=== PATIENT | male | born 1960 | race African-American/Black ===

== ENCOUNTER 2020-08-16 10:29 | Emergency (ER) | payer SELFPAY ==
[~2020-08-16] VITALS: Ht 188 cm; Wt 90.6 kg
[2020-08-16 10:46] VITALS: BP 164/83
[2020-08-16] MEDS ORDERED: HYDROcodone/APAP 10/325 1 TAB TABLET PO ONE (11:00)
[2020-08-16] MEDS ORDERED: BACITRACIN ZINC TOPICAL OINT PACKET. TP ONE (11:33)
[2020-08-16] MEDS ORDERED: HYDR-3165 PO (11:34)
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
== END 2020-08-16 11:48 | disposition home or self-care (01) ==
LOC: ER 10:29
DX: T24.211A Burn of second degree of right thigh, initial encounter (principal); T23.122A Burn of first degree of single left finger (nail) except thumb, initial encounter; T31.0 Burns involving less than 10% of body surface; X08.8XXA Exposure to other specified smoke, fire and flames, initial encounter; Y93.89 Activity, other specified; Y92.89 Other specified places as the place of occurrence of the external cause; Y99.8 Other external cause status
CPT/HCPCS: 16020; 99283

== ENCOUNTER 2020-08-29 12:34 | Emergency (ER) | payer SELFPAY ==
[~2020-08-29] VITALS: Ht 185.4 cm; Wt 105.0 kg
[~2020-08-29 12:34] MED LIST: HYDR-3165 PO
[2020-08-29 12:35] VITALS: BP 136/79
--- NOTE | 2020-08-29 13:04 | PHYS DOC ---
Past History Past Medical History: No Pertinent History Past Surgical History: No Surgical History Alcohol Use: Occasionally General Adult EDM: Chief Complaint: ABSCESS HPI: HPI: Patient is a 60-year-old male who presents with abscess on back of his neck and right buttocks. Patient states he noticed the abscess 4 days ago. Patient reports pain to both areas. Patient denies taking anything for the pain. Patient denies fever. Review of Systems: Review of Systems: Constitutional: Denies fever or chills Eyes: Denies change in visual acuity HENT: Denies nasal congestion or sore throat Respiratory: Denies cough or shortness of breath Cardiovascular: Denies chest pain or edema GI: Denies abdominal pain, nausea, vomiting, bloody stools or diarrhea : Denies dysuria Musculoskeletal: Denies back pain or joint pain Integument: Reports abscess to neck, right buttocks Neurologic: Denies headache, focal weakness or sensory changes Endocrine: Denies polyuria or polydipsia Lymphatic: Denies swollen glands Psychiatric: Denies depression or anxiety Allergies: Allergies: Allergies Coded Allergies Type Severity Reaction Last Updated Verified No Known Drug Allergies 08/29/20 No Physical Exam: PE: Constitutional: Well developed, well nourished, no acute distress, non-toxic appearance. [] HENT: Normocephalic, atraumatic, bilateral external ears normal, oropharynx moist, no oral exudates, nose normal. [] Eyes: PERRLA, EOMI, conjunctiva normal, no discharge. [] Neck: Normal range of motion, no tenderness, supple, no stridor. [] Cardiovascular:Heart rate regular rhythm, no murmur [] Lungs & Thorax: Bilateral breath sounds clear to auscultation [] Abdomen: Bowel sounds normal, soft, no tenderness, no masses, no pulsatile masses. [] Skin: Red, raised abscess to back of neck and right buttocks Back: No tenderness, no CVA tenderness. [] Extremities: No tenderness, no cyanosis, no clubbing, ROM intact, no edema. [] Neurologic: Alert and oriented X 3, normal motor function, normal sensory function, no focal deficits noted. [] Psychologic: Affect normal, judgement normal, mood normal. [] Current Patient Data: Vital Signs: Vital Signs Date Time Temp Pulse Resp B/P (MAP) Pulse Ox O2 Delivery O2 Flow Rate FiO2 08/29/20 12:35 99.7 109 20 136/79 (98) 96 EKG: EKG: [] Radiology/Procedures: Radiology/Procedures: [] Heart Score: Risk Factors: Risk Factors: DM, Current or recent (<one month) smoker, HTN, HLP, family history of CAD, obesity. Risk Scores: Score 0 - 3: 2.5% MACE over next 6 weeks - Discharge Home Score 4 - 6: 20.3% MACE over next 6 weeks - Admit for Clinical Observation Score 7 - 10: 72.7% MACE over next 6 weeks - Early Invasive Strategies Course & Med Decision Making: Course & Med Decision Making Pertinent Labs and Imaging studies reviewed. (See chart for details) [] 60-year-old male who presents with abscess on back of his neck and right buttocks. Patient states he noticed the abscess 4 days ago. I&D and antibiotics for home. Follow up in 3-5 days with PCP or emergency room for wound check. Dragon Disclaimer: Dragon Disclaimer: This electronic medical record was generated, in whole or in part, using a voice recognition dictation system. Departure Departure: Impression: Primary Impression: Abscess Disposition: 01 DC HOME SELF CARE/HOMELESS Condition: IMPROVED Referrals: PCP,NO (PCP) Patient Instructions: Abscess, [id number] Additional Instructions: Follow up in 3-5 days for wound check. Make sure to take your antibiotic as directed to heal your wounds. EMERGENCY DEPARTMENT GENERAL DISCHARGE INSTRUCTIONS Thank you for coming to [facility] (ED) today and trusting us with you care. We trust that you had a positivie experience in our Emergency Department. If you wish to speak to the department management, you may call the director at [phone]. YOUR FOLLOW UP INSTRUCTIONS ARE FOLLOWS: 1. Do you have a private Doctor? If you do not have a private doctor, please ask for a resource list of physicians or clinics that may be able to assist you with follow up care. 2. The Emergency Physician has interpreted your x-rays. The X-Ray specialist will also review them. If there is a change in the findings, you will be notified in 48 hours when at all possible. 3. A lab test or culture has been done, your results will be reviewed and you will be notified if you need a change in treatment. ADDITIONAL INSTRUCTIONS AND INFORMATION: 1. Your care today has been supervised by a physician who is specially trained in emergency care. Many problems require more than one evaluation for a complete diagnosis and treatment. We recommend that you schedule your follow up appointment as recommended to ensure complete treatment of you illness or injury. If you are unable to obtain follow up care and continue to have a problem, or if your condition worsens, we recommend that you return to the ED. 2. We are not able to safely determine your condition over the phone nor are we able to give sound medical advice over the phone. For these safety reasons, if you call for medical advice we will ask you to come to the ED for further evaluation. 3. If you have any questions regarding these discharge instructions please call the ED at [phone]. SAFETY INFORMATION: In the interest of safety, wellness, and injury prevention; we encourage you to wear your sealbelt, if you smoke; quite smoking, and we encourage family to use a protective helmet for bicycling and other sporting events that present an increased risk for head injury. IF YOUR SYMPTOMS WORSEN OR NEW SYMPTOMS DEVELOP, OR YOU HAVE CONCERNS ABOUT YOUR CONDITION; OR IF YOUR CONDITION WORSENS WHILE YOU ARE WAITING FOR YOUR FOLLOW UP APPOINTMENT; EITHER CONTACT YOUR PRIMARY CARE DOCTOR, THE PHYSICIAN WHOSE NAME AND NUMBER YOU WERE GIVEN, OR RETURN TO THE ED IMMEDIATELY. Scripts Sulfamethoxazole/Trimethoprim (BACTRIM DS TABLET) 1 Each Tablet 1 EACH PO BID for wound for 7 Days, #14 TAB Prov: JULIAN MARIE APRN 08/29/20 JULIAN MARIE APRN Aug 29, 2020 13:04
[2020-08-29] MEDS ORDERED: LIDOCAINE 1%/EPI 1:100,000 20 ML VIAL. IJ ONE (13:15)
[2020-08-29] MEDS ORDERED: SULF1TAB24 PO (14:20)
== END 2020-08-29 14:22 | disposition home or self-care (01) ==
LOC: ER 12:34
DX: L02.31 Cutaneous abscess of buttock (principal); L02.212 Cutaneous abscess of back [any part, except buttock and flank]; L02.11 Cutaneous abscess of neck
CPT/HCPCS: 99283

== ENCOUNTER 2020-11-07 14:08 | Inpatient (IN) | payer SELFPAY ==
[~2020-11-07] VITALS: Ht 188 cm; Wt 82.0 kg
[~2020-11-07 14:08] MED LIST changes: +SULF1TAB24 PO
[2020-11-07] MEDS ORDERED: IV NORMAL SALINE 1,000ML 1,000 ML IV ONE (15:00)
[2020-11-07] MEDS ORDERED: CLINDAMYCIN 600MG PREMIX 50 ML IV ONE (15:00)
[2020-11-07] MEDS ORDERED: IOHEXOL 300 MG/ML 75 ML VIAL. IV ONE (15:15)
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
[2020-11-07 15:16] LABS: BASO # 0.1 x10^3/uL (0.0-0.2); BASO % 1 % (0-3); EOS # 0.1 x10^3/uL (0.0-0.7); EOS % 1 % (0-3); HEMATOCRIT 45.7 % (39.0-53.0); HEMOGLOBIN 15.4 g/dL (13.0-17.5); LYMPH # 1.2 x10^3/uL (1.0-4.8); LYMPH % 10 % (24-48); MEAN CORPUSCULAR HEMOGLOBIN 30 pg (25-35); MEAN CORPUSCULAR HGB CONC 34 g/dL (31-37); MEAN CORPUSCULAR VOLUME 88 fL (79-100); MONO # 1.4 x10^3/uL (0.0-1.1); MONO % 11 % (0-9); NEUT # 9.6 x10^3uL (1.8-7.7); NEUT % 78 % (31-73); PLATELET COUNT 229 x10^3/uL (140-400); RED BLOOD COUNT 5.17 x10^6/uL (4.30-5.70); RED CELL DISTRIBUTION WIDTH 14.1 % (11.5-14.5); WHITE BLOOD COUNT 12.4 x10^3/uL (4.0-11.0)
[2020-11-07] MEDS ORDERED: CONTRAST GIVEN. MC PRN (15:30)
--- NOTE | 2020-11-07 15:41 | RAD ---
EXAM: Pelvis CT with intravenous contrast. HISTORY: Right gluteal and perineal swelling and erythema. TECHNIQUE: Computed tomographic images of the pelvis were obtained following the administration of in travenous contrast. Multiplanar reformatting was performed. *One or more of the following individualized dose reduction techniques were utilized for this examina tion: 1. Automated exposure control. 2. Adjustment of the mA and/or kV according to patient size. 3. Use of iterative reconstruction technique. COMPARISON: None. FINDINGS: There is fatty stranding throughout the inferior medial right buttock and right perineum wi th overlying skin thickening due to cellulitis. There is a suspected small amount of nonloculated and nondrainable fluid in this location. No soft tissue gas is seen. No foreign body is seen. There are sigmoid diverticula. There is a 1.2 cm stone within the right posterior urinary bladder. Th ere is calcified atherosclerotic plaque involving the iliac vessels. There is a small fat-containing left inguinal hernia. There are prominent right inguinal lymph nodes which are likely reactive, the l argest of which measures 2.2 cm in long axis. There is no suspicious osseous lesion. There is minimal grade 1 anterolisthesis of L4 and L5. There a re disc bulges with endplate remodeling and facet arthropathy at the lower lumbar levels. This result s in mild bilateral foraminal and moderate central canal stenosis at L4-L5 and [id number] bilat eral foraminal stenosis at L5-S1. IMPRESSION: 1. Cellulitis involving the inferior medial right buttock and right perineum. There is a suspected sm all amount of nonloculated and nondrainable fluid within this location. 2. Sigmoid diverticulosis. 3. Bladder stone. 4. Reactive right inguinal lymph node. 5. Degenerative change involving the lumbar spine, resulting in stenosis as described above. Electronically signed by: Skylar Schneider MD (11/07/2020 3:39 PM) [id number]
[2020-11-07] MEDS ORDERED: LIDOCAINE 2%/EPI 1:100,000 20 ML VIAL. IJ ONE (16:15)
[2020-11-07] MEDS ORDERED: ACETAMINOPHEN 325 MG TABLET PO PRN (16:30)
[2020-11-07] MEDS ORDERED: DIPH,PERTUSS(ACELL),TET VAC/PF 0.5 ML SYRINGE. VAX IM ONE (16:30)
[2020-11-07] MEDS ORDERED: PIP/TAZO PER PHARMACY MC PRN (16:30)
[2020-11-07] MEDS ORDERED: PIPERACILLIN/TAZOBACTAM 3.375 GM in IV NORMAL SALINE 50ML 50 ML IV ONE (16:45)
[2020-11-07 16:47] LABS: CALCIUM 9.1 mg/dL (8.5-10.1); CREATININE 1.2 mg/dL (0.7-1.3); GFR 75.2; POTASSIUM 3.9 mmol/L (3.5-5.1)
[2020-11-07 16:51] LABS: ALBUMIN/GLOBULIN RATIO 0.6 (1.0-1.7); MAGNESIUM 2.3 mg/dL (1.8-2.4); TOTAL BILIRUBIN 1.1 mg/dL (0.2-1.0); TOTAL PROTEIN 7.7 g/dL (6.4-8.2)
[2020-11-07] MEDS ORDERED: VANCOMYCIN 2 GM in IV NORMAL SALINE 500ML 500 ML IV ONE (17:00)
[2020-11-07 17:04] LABS: BILIRUBIN,URINE NEG (NEG); CLARITY,URINE CLEAR; COLOR,URINE YELLOW; GLUCOSE,URINE NEG (NEG)
[2020-11-07 17:05] LABS: NITRITE,URINE NEG (NEG); UROBILINOGEN,URINE >=8.0 mg/dL (0.2 mg/dL)
[2020-11-07 17:14] LABS: BACTERIA,URINE 0 /HPF (0-FEW); RBC,URINE OCC /HPF (0-2); WBC,URINE 0 /HPF (0-4)
--- NOTE | 2020-11-07 17:47 | NUR ---
PT ARRIVED TO ROOM VIA EMS. PT IS STABLE AT TIME OF ADMISSION. PTS VS OBTAINED AND ARE STABLE. PT IS ORIENTED TO ROOM AND PROCEDURES. NOTIFIED DR CHENG OF ADMISSION. WILL CONTINUE TO MONITOR.
[2020-11-07] MEDS: PIPERACILLIN/TAZOBACTAM 3.375 GM in IV NORMAL SALINE 50ML 50 ML IV SCH ×2 (18:30→23:58)
[2020-11-07] MEDS ORDERED: ONDANSETRON PF 4 MG/2 ML VIAL. IVP PRN (18:45)
[2020-11-07] MEDS: oxyCODONE IR 5 MG TABLET PO PRN ×2 (19:16→23:58)
[2020-11-07 19:25] VITALS: BP 139/89
[2020-11-07 22:25] VITALS: BP 144/79
[2020-11-07] MEDS: VANCOMYCIN PER PHARMACY MC PRN (22:30)
--- NOTE | 2020-11-07 22:34 | NUR ---
Pharmacy Vancomycin Dosing Note S:Consulted to monitor and dose vancomycin started 11/07/20. O:ELI PAZ is a 60 year old M with Cellulitis, . Height: 6 feet, 2 inches Weight: 82.0 kg [place] Body Weight: 82.20 Adjusted Body Weight: 82.12 Dosing Weight: Actual Other Antibiotics: ZOSYN 3.375 GM IV Q6HR LABS: Last BUN: 16 Last Creatinine: 1.2 Creatinine Clearance: 77.82 Last WBC: 12.4 Vancomycin Dosing: Loading Dose: 2000 mg x1 Dosing Weight: Actual Target Trough: 10-20 A: Based on: actual weight, renal function, and diagnosis P: 1. Begin Vancomycin 1250 mg IV q12h 2. Follow up Trough level on 11/09/20 at 0730 3. Pharmacy will continue to monitor, follow and adjust therapy as needed. ZOYA AC, 11/07/20 0081
[2020-11-08] MEDS: PIPERACILLIN/TAZOBACTAM 3.375 GM in IV NORMAL SALINE 50ML 50 ML IV SCH ×4 (05:44→23:39)
[2020-11-08] MEDS: oxyCODONE IR 5 MG TABLET PO PRN ×2 (05:44→12:12)
[2020-11-08 05:50] VITALS: BP 141/94
--- NOTE | 2020-11-08 06:15 | NUR ---
Pt awake in bed watching TV at change of shift. Pt A&Ox4, very pleasant and cooperative with care. Wound cx completed and sent to lab. Pictures taken using Ever[employer] system and placed in chart. Box lunch given for HS snack. Pt given 3 doses of PRN pain medication during shift. Pt up independently to bathroom during night. Pt without fever during shift. Pt moved over to [address] room 117 this AM, all belongings sent with pt.
[2020-11-08] MEDS: VANCOMYCIN 1.25 GM in IV NORMAL SALINE 250ML 250 ML IV SCH ×2 (07:40→20:22)
[2020-11-08] MEDS ORDERED: ONDANSETRON PF 4 MG/2 ML VIAL. IVP PRN (15:45)
[2020-11-08] MEDS ORDERED: MORPHINE SULFATE 4 MG/ML DISP.SYRIN. IV PRN (15:45)
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
--- NOTE | 2020-11-08 17:23 | NUR ---
Wound Care Wound care consult for multiple abscesses. Pt has 2 small abscesses to right axilla that are indurated, warm to touch, and reddened. The most distal of the two is still open and draining from ER I&D, the proximal one has closed and is too painful to reopen. Pt also has a large indurated abscess to right buttock that is open and draining copious amount of purulent sanguinous drainage. Cleansed all wounds. Packed 1/4" iodoform gauze into 5cm tunnel on buttock abscess to act as a wick for drainage. Pt experienced pain 10/10 with procedure, recommend pre-medicating prior to replacing packing daily. ABD and brief used to collect drainage on buttock. Unable to pack axilla abscesses as the openings are too small/closed, covered with foam dressing. Pt educated on WC POC and PU prevention. Delfina LIGHT at bedside for wound care assessment. WC will continue to follow for possible changes.
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
[2020-11-08] MEDS: LACTOBACILLUS RHAMNOSUS GG 1 CAPSULE. PO SCH (20:22)
[2020-11-08 20:35] VITALS: BP 132/89
[2020-11-09] MEDS: PIPERACILLIN/TAZOBACTAM 3.375 GM in IV NORMAL SALINE 50ML 50 ML IV SCH ×3 (05:55→18:11)
[2020-11-09 06:02] VITALS: BP 143/94
[2020-11-09 07:42] LABS: HEMATOCRIT 45.8 % (39.0-53.0); HEMOGLOBIN 15.2 g/dL (13.0-17.5); RED BLOOD COUNT 5.1 x10^6/uL (4.30-5.70); RED CELL DISTRIBUTION WIDTH 14.1 % (11.5-14.5); WHITE BLOOD COUNT 6.7 x10^3/uL (4.0-11.0)
[2020-11-09] MEDS ORDERED: IOHEXOL 300 MG/ML 75 ML VIAL. IV ONE (07:45)
[2020-11-09 07:57] LABS: ALBUMIN 2.7 g/dL (3.4-5.0); ALBUMIN/GLOBULIN RATIO 0.6 (1.0-1.7); CALCIUM 9.1 mg/dL (8.5-10.1); CREATININE 1.1 mg/dL (0.7-1.3); GFR 83.2; POTASSIUM 4.1 mmol/L (3.5-5.1); TOTAL BILIRUBIN 0.7 mg/dL (0.2-1.0); TOTAL PROTEIN 7.5 g/dL (6.4-8.2); VANC TR 7.8 mcg/mL (10.0-20.0)
--- NOTE | 2020-11-09 08:59 | RAD ---
EXAM: Abdomen and pelvis CT with intravenous contrast. HISTORY: Buttock abscess. TECHNIQUE: Computed tomographic images of the abdomen and pelvis were obtained following the administ ration of intravenous contrast. Multiplanar reformatting was performed. *One or more of the following individualized dose reduction techniques were utilized for this examina tion: 1. Automated exposure control. 2. Adjustment of the mA and/or kV according to patient size. 3. Use of iterative reconstruction technique. COMPARISON: 11/07/2020. FINDINGS: Evaluation of the lower thorax demonstrates posterior dependent atelectasis. There is no in filtrate or pleural effusion. There is a small benign cyst within the left hepatic lobe. There is fat ty infiltration of the liver along the falciform ligament. The gallbladder is unremarkable. The pancr eas, spleen and stomach are unremarkable. The adrenal glands are unremarkable there is a small simple cyst within the left kidney. There is no hydronephrosis. The appendix is normal in appearance. There is no abnormally thickened or dilated loop of bowel. There is a 1.3 cm stone within the bladder. The bladder is nearly empty. There are small fat-containing left greater than right inguinal hernias. There is a tiny fat-containi ng umbilical hernia. There is stable fatty stranding within the medial right buttock and right perine um. No drainable fluid collection is seen. The visualized skin thickening. There has been no change i n right inguinal lymphadenopathy, likely reactive given the aforementioned evidence of cellulitis. Th ere is no suspicious osseous lesion. The aorta is normal in caliber. IMPRESSION: 1. Cellulitis involving the right buttock and right perineum. No drainable abscess or soft tissue gas is seen. 2. Stable reactive right inguinal lymphadenopathy. 3. Small benign cysts within the liver and left kidney. Follow-up is not routinely recommended for si mple cysts. 4. Bladder stone. Electronically signed by: Skylar Schneider MD (11/09/2020 8:56 AM) [id number]
[2020-11-09] MEDS: VANCOMYCIN 1.5 GM in IV NORMAL SALINE 500ML 500 ML IV SCH ×2 (09:30→21:18)
[2020-11-09] MEDS: LACTOBACILLUS RHAMNOSUS GG 1 CAPSULE. PO SCH ×2 (09:30→21:17)
[2020-11-09 10:16] VITALS: BP 135/87
[2020-11-09] MEDS: VANCOMYCIN PER PHARMACY MC PRN (14:10)
--- NOTE | 2020-11-09 14:11 | NUR ---
Pharmacy Vancomycin Dosing Note S:Consulted to monitor and dose vancomycin started 11/07/20. O:EIL PAZ is a 60 year old M with Cellulitis, . Height: 6 feet, 2 inches Weight: 82.0 kg [place] Body Weight: 82.20 Adjusted Body Weight: 82.12 Dosing Weight: Actual Other Antibiotics: ZOSYN 3.375 GM IV Q6HR LABS: Last BUN: 12 Last Creatinine: 1.1 Creatinine Clearance: 77.82 Last WBC: 6.7 Last Procalcitonin: Tmax (past 24 hours): Microbiology: I/O: Drug Levels: Last Trough level: 7.8 on 11/09/20 at 0730 Last dose given 11/09/20 at 0900 Vancomycin Dosing: Loading Dose: 2000 mg x1 Dosing Weight: Actual Target Trough: 10-20 A: Based on: P: 1. Change to Vancomycin 1500 mg IV q12h from 1250mg q12hrs 2. Follow up Trough level on 11/10/20 at 2030 3. Pharmacy will continue to monitor, follow and adjust therapy as needed. AGUILA PALMER [facility] [place], 11/09/20 [id number]
[2020-11-09 14:51] VITALS: BP 169/85
--- NOTE | 2020-11-09 15:10 | PN ---
DATE: 11/09/2020 SUBJECTIVE: The patient is resting, slightly propped up in bed, in no apparent distress. On questioning him, he stated that he has less pain in his gluteal area and right axilla. Has no fever. PHYSICAL EXAMINATION: GENERAL: When I examined him, he looked well and was clearly in no apparent respiratory distress. No pallor, jaundice, cyanosis or thyromegaly. No jugular venous distention. No limb edema. VITAL SIGNS: His heart rate was 70, blood pressure was 135/87, temperature was 98.1, respiratory rate 20, and oxygen saturation was 97%. HEAD, EYES, EARS, NOSE, AND THROAT: Showed normocephalic, atraumatic. NECK: Supple. HEART: Showed normal first and second heart sounds. No gallop or murmur. CHEST: Clear to auscultation. No crepitation or rhonchi. ABDOMEN: Distended, soft, nontender. NEUROLOGIC: He is awake, alert, responding appropriately. All cranial nerves are intact. He moves extremities without difficulty. SKIN: His right axilla and right gluteal area showed the area is less indurated and less tender. The right gluteal area has opened up spontaneously and continued to drain large amount of purulent material. The wound from his right buttock showed growth of Gram-positive cocci identified as Staphylococcus aureus. The sensitivity is still pending at the time of this dictation. His blood culture showed no growth. LABORATORY DATA: His lab work this morning showed a white cell count is down to 6700, hemoglobin 15, hematocrit 45, MCV 90, and platelet count 262,000. His chemistry showed a serum sodium 139, potassium 4.1, chloride 105, bicarbonate 27, anion gap of 7, BUN 12, creatinine 1.1, estimated GFR was 83 mL per minute, his glucose 115, calcium was 9.1. Total bilirubin, AST, ALT, alkaline phosphatase were normal. Total protein 7.5, albumin was 2.7. His vancomycin trough level was 7.8. ASSESSMENT: Right axillary and right gluteal decubitus abscess and cellulitis. The patient seem to be clinically responding. The right gluteal abscess is less indurated and right axillary abscesses are still smaller and less indurated and less painful. White cell count is down. His right gluteal abscess is growing Staphylococcus aureus. PLAN: My plan is to continue with IV antibiotic in the form of vancomycin and Zosyn. We did repeat a CT scan of the pelvis, which basically again showed that there is cellulitis involving the right buttock and right perineum, no drainable abscess or soft tissue gas is seen. Stable active right inguinal lymphadenopathy, small benign cyst within the liver and left kidney and bladder stones. BILL CHENG MD DR: ALBA/zuhair JOB#: [id number] / [id number]
[2020-11-09 19:51] VITALS: BP 149/92
[2020-11-09 23:44] VITALS: BP 159/99
[2020-11-10] MEDS: PIPERACILLIN/TAZOBACTAM 3.375 GM in IV NORMAL SALINE 50ML 50 ML IV SCH ×3 (00:10→12:00)
[2020-11-10 05:50] VITALS: BP 147/92
[2020-11-10] MEDS: VANCOMYCIN 1.5 GM in IV NORMAL SALINE 500ML 500 ML IV SCH ×2 (07:53→20:38)
[2020-11-10] MEDS: oxyCODONE IR 5 MG TABLET PO PRN (07:53)
[2020-11-10] MEDS: LACTOBACILLUS RHAMNOSUS GG 1 CAPSULE. PO SCH ×2 (07:53→20:38)
[2020-11-10 08:04] LABS: HEMATOCRIT 47.3 % (39.0-53.0); HEMOGLOBIN 15.9 g/dL (13.0-17.5); RED BLOOD COUNT 5.28 x10^6/uL (4.30-5.70); RED CELL DISTRIBUTION WIDTH 14.1 % (11.5-14.5); WHITE BLOOD COUNT 6.3 x10^3/uL (4.0-11.0)
[2020-11-10 08:43] LABS: VANC TR 11.8 mcg/mL (10.0-20.0)
[2020-11-10 08:44] LABS: ALBUMIN 2.9 g/dL (3.4-5.0); ALBUMIN/GLOBULIN RATIO 0.6 (1.0-1.7); CALCIUM 9.4 mg/dL (8.5-10.1); CREATININE 1.2 mg/dL (0.7-1.3); GFR 75.2; POTASSIUM 4.2 mmol/L (3.5-5.1); TOTAL BILIRUBIN 0.4 mg/dL (0.2-1.0); TOTAL PROTEIN 7.8 g/dL (6.4-8.2)
[2020-11-10 11:37] VITALS: BP 144/88
[2020-11-10 14:42] VITALS: BP 155/93
[2020-11-10] MEDS: VANCOMYCIN PER PHARMACY MC PRN (15:26)
--- NOTE | 2020-11-10 15:33 | NUR ---
Pharmacy Vancomycin Dosing Note S:Consulted to monitor and dose vancomycin started 11/07/20. O:ELI PAZ is a 60 year old M with Cellulitis, . Height: 6 feet, 2 inches Weight: 82.0 kg [place] Body Weight: 82.20 Adjusted Body Weight: 82.12 Dosing Weight: Actual Other Antibiotics: NONE LABS: Last BUN: 12 Last Creatinine: 1.2 Creatinine Clearance: 77.82 Last WBC: 6.3 Drug Levels: Last Trough level: 11.8 on 11/10/20 at 0750 Last dose given 11/10/20 at 0900 Vancomycin Dosing: Loading Dose: 2000 mg x1 Dosing Weight: Actual Target Trough: 10-20 A: Based on: Trough P: 1. Contine Vancomycin 1500 mg IV q12h 2. Follow up Trough level on 11/12/20 at 0830 3. Pharmacy will continue to monitor, follow and adjust therapy as needed. ZOYA AC, 11/10/20 [id number]
--- NOTE | 2020-11-10 16:28 | PN ---
DATE: 11/10/2020 SUBJECTIVE: The patient is resting, slightly propped up in bed, in no apparent distress. His right axillary abscesses are much smaller and less tender, continued to have the abscess in the right gluteal area, continued to drain purulent material, still very tender, smaller in size. My plan is to discontinue the Zosyn and continue with vancomycin and tomorrow, we will switch him to oral antibiotic according to the result of the sensitivity. OBJECTIVE: GENERAL: When I examined him this afternoon, he looked well and was clearly in no apparent respiratory distress. No pallor, jaundice, cyanosis or thyromegaly. No jugular venous distention or limb edema. VITAL SIGNS: His heart rate was 74, blood pressure 155/93, temperature 98.4, respiratory rate was 20, and oxygen saturation was 98%. The rest of clinical exam is stable. LABORATORY DATA: As of this morning showed a white cell count down to 6300, hemoglobin 15, hematocrit 47, MCV 90 and platelet count 305,000. Serum sodium was 139, potassium 4.2, chloride 106, bicarbonate 24, anion gap of 9, BUN 14, creatinine 1.2, estimated GFR was 75 mL per minute. Her glucose 109, calcium was 9.4. Total bilirubin and alkaline phosphatase is normal. AST, ALT slightly elevated. Total protein 7.8, albumin 2.9. His prothrombin time, INR and aPTT are normal. His culture has grown methicillin-sensitive Staphylococcus aureus. PLAN: My plan is to discontinue Zosyn. Continue with IV vancomycin for one more day and then discharge him tomorrow. BILL CHENG MD DR: ALBA/zuhair JOB#: [id number] / [id number]
[2020-11-11 05:17] VITALS: BP 133/87
[2020-11-11] MEDS: LACTOBACILLUS RHAMNOSUS GG 1 CAPSULE. PO SCH (08:34)
[2020-11-11] MEDS: oxyCODONE IR 5 MG TABLET PO PRN (08:34)
[2020-11-11] MEDS: VANCOMYCIN 1.5 GM in IV NORMAL SALINE 500ML 500 ML IV SCH (08:35)
[2020-11-11 11:17] VITALS: BP 148/88
--- NOTE | 2020-11-11 13:10 | NUR ---
PT IS DISCHARGED HOME WITH SELF CARE. PT IS GIVEN ALL DISCHARGE AND FOLLOW UP INSTRUCTIONS PT IS GIVEN PRN HYDROCODONE, WELL BACTRIM DS. PT REFUSES DISCHARGE WOUND PHOTOS. IMPROVEMENT NOTED BY THIS NURSE AND DR CHENG ON ASSESSMENT. PT AMBULATED OFF OF UNIT ACCOMPANIED BY STAFF. IV REMOVED BEFORE DISCHARGE.
--- NOTE | 2020-11-11 21:06 | DS ---
DATE OF DISCHARGE: 11/11/2020 HISTORY OF PRESENT ILLNESS: The patient is a 60-year-old -Citizen Of [place] male patient who was admitted with pain, swelling with right axilla and right gluteal area, was found to have multiple small right axillary abscesses and large area of induration and cellulitis of right gluteal abscess. We did start him on IV antibiotic in the form of vancomycin and Zosyn initially and the gluteal abscess has opened and drained purulent material that is sent for culture and sensitivity and he did grow methicillin-sensitive Staphylococcus aureus sensitive to almost all antibiotics including oxacillin, trimethoprim and sulfamethoxazole, vancomycin and clindamycin. His abscesses in the axilla have been getting very small. The abscess and induration in the right gluteal area has largely resolved. The patient has been hemodynamically stable and afebrile. His white cell count has been normal to steadily improving and a decision was made to discharge him home to continue treatment on oral antibiotic in the form of Bactrim-DS 1 tablet twice a day for 7 days. PHYSICAL EXAMINATION: GENERAL: When I saw him today, he looked well and was clearly in no apparent respiratory distress. No pallor, jaundice, cyanosis or thyromegaly. No jugular venous distention or limb edema. VITAL SIGNS: Heart rate was 65, blood pressure 148/88, temperature was 98.2, respiratory rate 20, and oxygen saturation was 96%. HEAD, EARS, EYES, NOSE AND THROAT: Normocephalic, atraumatic. NECK: Supple. HEART: Normal first and second heart sounds. No gallop or murmur. CHEST: Clear to auscultation. No crepitation or rhonchi. ABDOMEN: Distended, soft, nontender. NEUROLOGIC: He is grossly intact. His right axilla abscess is largely resolved. His right gluteal abscess is almost completely resolved with small area of induration, no tenderness. LABORATORY DATA: Showed a white cell count of 6300, hemoglobin 16, hematocrit 47, MCV 90 and platelet count of 305,000. Serum sodium was 139, potassium 4.2, chloride 106, bicarbonate 24, anion gap of 9, BUN 14, creatinine 1.2, estimated GFR was 75 mL per minute. His glucose 109, calcium was 9.4. Total bilirubin and alkaline phosphatase were normal. AST, ALT are slightly elevated. Total protein 7.6, albumin 2. DISCHARGE MEDICATIONS: Patient was discharged home to continue on Bactrim-DS 1 tablet twice a day for 7 days and hydrocodone/APAP 5/325 one tablet twice a day. FINAL DISCHARGE DIAGNOSES: 1. Right axillary abscess. 2. Right gluteal abscess and cellulitis, both resolved. BILL CHENG MD DR: ALBA/zuhair JOB#: [id number] / [id number]
== END 2020-11-11 13:10 | disposition home or self-care (01) | DRG 603 ==
LOC: ER 14:08 → ICU 16:15 → 1 SOUTH 11-08 06:25
PROVIDERS: ADMIT Internal Medicine; ATTEND Internal Medicine
DX: L03.111 Cellulitis of right axilla (principal); L02.31 Cutaneous abscess of buttock; L03.317 Cellulitis of buttock; L02.215 Cutaneous abscess of perineum; L02.411 Cutaneous abscess of right axilla; L89.319 Pressure ulcer of right buttock, unspecified stage; M47.816 Spondylosis without myelopathy or radiculopathy, lumbar region; M48.061 Spinal stenosis, lumbar region without neurogenic claudication; K57.30 Diverticulosis of large intestine without perforation or abscess without bleeding; I10 Essential (primary) hypertension; N21.0 Calculus in bladder; Z80.9 Family history of malignant neoplasm, unspecified; Z87.891 Personal history of nicotine dependence
CPT/HCPCS: 36415; 72193; 74177; 80053; 80202; 81001; 83605; 83735; 85025; 85027; 85610; 85730; 87040; 87070; 87077; 87186; 90471; 90715; 96361; 96365; J2270; J2543; J3370; J3490; J7040; J7050; Q9967; 99285-25; J7030

== ENCOUNTER 2020-11-21 08:33 | Emergency (ER) | payer SELFPAY ==
[~2020-11-21] VITALS: Ht 188 cm; Wt 82.0 kg
[2020-11-21 08:36] VITALS: BP 148/88
--- NOTE | 2020-11-21 08:48 | PHYS DOC ---
Past History Past Medical History: Abscess, Hypertension Past Surgical History: No Surgical History Smoking: Non-smoker Alcohol Use: None Drug Use: Marijuana Adult General HPI HPI Patient is a 60-year-old male with a past medical history of hypertension and abscesses status post drainage now presenting to emergency department for wound check. Patient states back in July he had incision and drainage and he right buttock wound. Patient states he never followed up and has noted some soreness in the area when it checked. Denies any fever, chills, nausea, vomiting. Has any dizziness or lightheadedness. Review of Systems Review of Systems Constitutional: Denies fever or chills [] Eyes: Denies change in visual acuity, redness, or eye pain [] HENT: Denies nasal congestion or sore throat [] Respiratory: Denies cough or shortness of breath [] Cardiovascular: No additional information not addressed in HPI [] GI: Denies abdominal pain, nausea, vomiting, bloody stools or diarrhea [] : Denies dysuria or hematuria [] Musculoskeletal: Denies back pain or joint pain [] Integument: Denies rash or skin lesions [] Neurologic: Denies headache, focal weakness or sensory changes [] Endocrine: Denies polyuria or polydipsia [] All other systems were reviewed and found to be within normal limits, except as documented in this note. Allergies Allergies Allergies Coded Allergies Type Severity Reaction Last Updated Verified No Known Drug Allergies 08/29/20 No Physical Exam Physical Exam Constitutional: Well developed, well nourished, no acute distress, non-toxic appearance. [] HENT: Normocephalic, atraumatic, bilateral external ears normal, oropharynx moist, no oral exudates, nose normal. [] Eyes: PERRLA, EOMI, conjunctiva normal, no discharge. [] Neck: Normal range of motion, no tenderness, supple, no stridor. [] Cardiovascular:Heart rate regular rhythm, no murmur [] Lungs & Thorax: Bilateral breath sounds clear to auscultation [] Abdomen: Bowel sounds normal, soft, no tenderness, no masses, no pulsatile masses. [] Skin: Warm, dry, no erythema, no rash. Posterior right buttock with 2 old well- healing wounds consistent with eschar without any fluctuance, tenderness or induration. Back: No tenderness, no CVA tenderness. [] Extremities: No tenderness, no cyanosis, no clubbing, ROM intact, no edema. [] Neurologic: Alert and oriented X 3, normal motor function, normal sensory function, no focal deficits noted. [] Psychologic: Affect normal, judgement normal, mood normal. [] EKG EKG [] Radiology/Procedures Radiology/Procedures [] Heart Score C/O Chest Pain: No Risk Factors: Risk Factors: DM, Current or recent (<one month) smoker, HTN, HLP, family history of CAD, obesity. Risk Scores: Risk Factors: DM, Current or recent (<one month) smoker, HTN, HLP, family history of CAD, obesity. Course & Med Decision Making Course & Med Decision Making Pertinent Labs and Imaging studies reviewed. (See chart for details) 60m presented for wound check for right buttock. This appears to be well- healing old abscesses with no evidence of new fluctuance or drainage or anything amenable to incision and drainage or antibiotics. At this time will discharge home Dragon Disclaimer Dragon Disclaimer This electronic medical record was generated, in whole or in part, using a voice recognition dictation system. Departure Departure: Impression: Primary Impression: Wound of right buttock Disposition: 01 DC HOME SELF CARE/HOMELESS Condition: GOOD Referrals: PCP,NO (PCP) Patient Instructions: Wound Care, [id number] Additional Instructions: EMERGENCY DEPARTMENT GENERAL DISCHARGE INSTRUCTIONS Thank you for coming to [facility] Emergency Department (ED) today and trusting us with you care. We trust that you had a positive experience in our Emergency Department. If you wish to speak to the department management, you may call the Director at [phone]. YOUR FOLLOW UP INSTRUCTIONS ARE FOLLOWS: 1. Do you have a private Doctor? If you do not have a private doctor, please ask for a resource list of physicians or clinics that may be able to assist you with follow up care. 2. The Emergency Physicain has interpreted your x-rays. The X-Ray specialist will also review them. If there is a change in the findings, you will be notified in 48 hours when at all possible. 3. A lab test or culture has been done, your results will be reviewed and you will be notified if you need a change in treatment. ADDITIONAL INSTRUCTIONS AND INFORMATION: 1. Your care today has been supervised by a physician who is specially trained in emergency care. Many problems require more than one evaluation for a complete diagnosis and treatment. We recommend that you schedule your follow up appointment as recommended to ensure complete treatment of you illness or injury. If you are unable to obtain follow up care and continue to have a problem, or if your condition worsens, we recommend that you return to the ED. 2. We are not able to safely determine your condition over the phone nor are we able to give sound medical advice over the phone. For these safety reasons, if you call for medical advice we will ask you to come to the ED for further evaluation. 3. If you have any questions regarding these discharge instructions please call the ED at [phone]. SAFETY INFORMATION: In the interest of safety, wellness, and injury prevention; we encourage you to wear your sealbelt, if you smoke; quite smoking, and we encourage family to use a protective helmet for bicycling and other sporting events that present an increased risk for head injury. IF YOUR SYMPTOMS WORSEN OR NEW SYMPTOMS DEVELOP, OR YOU HAVE CONCERNS ABOUT YOUR CONDITION; OR IF YOUR CONDITION WORSENS WHILE YOU ARE WAITING FOR YOUR FOLLOW UP APPOINTMENT; EITHER CONTACT YOUR PRIMARY CARE DOCTOR, THE PHYSICIAN WHOSE NAME AND NUMBER YOU WERE GIVEN, OR RETURN TO THE ED IMMEDIATELY. IVETT BLAKELY MD Nov 21, 2020 08:48
== END 2020-11-21 08:59 | disposition home or self-care (01) ==
LOC: ER 08:33
DX: S30.91XA Unspecified superficial injury of lower back and pelvis, initial encounter (principal); R42 Dizziness and giddiness; I10 Essential (primary) hypertension; X58.XXXA Exposure to other specified factors, initial encounter; Y93.89 Activity, other specified; Y92.89 Other specified places as the place of occurrence of the external cause; Y99.8 Other external cause status
CPT/HCPCS: 99281